=== PATIENT | female | born 1945 | race Caucasian/White ===

== ENCOUNTER 2018-06-08 17:43 | Emergency (ER) | payer MEDICARE, MEDICAID ==
--- NOTE | 2018-06-08 18:11 | ED Physician Chart ---
ED Chief Complaint/HPI - Patient Information Date Seen:: 06/08/18 Time Seen:: 18:05 Chief Complaint:: combative History of Present Illness:: THIS IS A 73 YO FEMALE WAS SENT FROM THE SNF FOR AN EVALUATION AND TREATMENT FOR HOSTILE BEHAVIOR WITH THE STAFF AND OTHER PATIENTS. Allergies:: Allergies Allergy/AdvReac Type Severity Reaction Status Date / Time levofloxacin [From Levaquin] Allergy Verified 06/08/18 17:51 Penicillins [PCN] Allergy Verified 06/08/18 17:51 Vitals:: Vital Signs - 8 hr 06/08/18 17:51 Temp 97.1 F HR 85 RR 18 BP 125/53 O2 Sat % 97 Historian:: Patient, EMS, Medical Records Review:: Nurse's Note Reviewed, Old Chart Reviewed, Transfer documents Reviewed ED Review of Systems - Review of Systems General/Constitutional: No fever, No chills, No weight loss, No weakness, No diaphoresis, No edema, No loss of appetite Skin: No skin lesions, Rash, No bruising Head: No headache, No light-headedness Eyes: No loss of vision, No pain, No diplopia ENT: No earache, No nasal drainage, No sore throat, No tinnitus Neck: No neck pain, No swelling, No thyromegaly, No stiffness, No mass noted Cardio Vascular: No chest pain, No palpitations, No PND, No orthopnea, No edema Pulmonary: No SOB, No cough, No sputum, No wheezing GI: No nausea, No vomiting, No diarrhea, No pain, No melena, No hematochezia, No constipation, No hematemesis G/U: No dysuria, No frequency, No hematuria Musculoskeletal: No bone or joint pain, No back pain, No muscle pain Endocrine: No polyuria, No polydipsia Psychiatric: Prior psych history, No depression, Anxiety, No suicidal ideation, Other (COMBATIVE AND HOSTILE BEHAVIOR) Hematopoietic: No bruising, No lymphadenopathy Allergic/Immuno: No urticaria, No angioedema Neurological: No syncope, No focal symptoms, No weakness, No paresthesia, No headache, No seizure, No dizziness, No confusion, No vertigo ED Past Medical History - Past Medical History Obtainable: Yes Past Medical History: HTN, CAD, Thyroid disorder, Arthritis, Dementia Family History: None Social History: Non Smoker, No Alcohol, No Drug Use, Care Facility Surgical History: PEG/GTube Psychiatricy History: Depression, Schizophrenia, Dementia Medication: Reviewed Family Medical History - Family Member Mother History Unknown: Yes Ethnicity: Unknown ED Physical Exam - Physical Examination General/Constitutional: Awake, Well-developed, well-nourished, Alert, No distress, GCS 15, Non-toxic appearing, Ambulatory Head: Atraumatic Eyes: Lids, conjuctiva normal, PERRL, EOMI Skin: Nl inspection, No rash (THIS PATIENT HAS UTICARIA OVER HER ENTIRE TRUNK ) , No skin lesions, No ecchymosis, Well hydrated, No lymphadenopathy ENMT: External ears, nose nl, Nasal exam nl, Lips, teeth, gums nl Neck: Nontender, Full ROM w/o pain, No JVD, No nuchal rigidity, No bruit, No mass, No stridor Respiratory: Nl effort/Exclusion, Clear to Auscultation, No Wheeze/Rhonchi/Rales Cardio Vascular: RRR, No murmur, gallop, rubs, NL S1 S2 GI: No tenderness/rebounding/guarding, No organomegaly, No hernia, Normal BS's, Nondistended, No mass/bruits, No McBurney tenderness : No CVA tenderness Extremities: No tenderness or effusion, Full ROM, normal strength in all extremities, No edema, Normal digits & nails Neuro/Psych: Alert/oriented, DTR's symmetric, Normal sensory exam, Normal motor strength, Judgement/insight normal (SHE HAS POOR INSIGHT AND HER MOOD IS ABNORMAL), Mood normal, Normal gait, No focal deficits Misc: Normal back, No paraspinal tenderness ED Labs/Radiology/EKG Results - Radiology Results Results: CHEST X-RAY = NAD - EKG Interpretations EKG Time:: 18:26 Rate & Rhythm: RATE = 86 SINUS [place]: LEFT AXIS Intervals: NO ECTOPY SEEN. ED Assessment - Assessment General Assessment: PSYCHOSIS ALLERGIC RASH ED Septic Shock - . Is Septic Shock (SBP<90, OR Lactate>4 mmol\L) present?: No - <6hrs of presentation: Vital Signs: Vital Signs - 8 hr 06/08/18 17:51 Temp 97.1 F HR 85 RR 18 BP 125/53 O2 Sat % 97 ED Reassessment (Disposition) - Reassessment Reassessment Condition:: Unchanged - Diagnosis Diagnosis:: PSYCHOSIS ALLERGIC RASH URINARY TRACT INFECTION - Patient Disposition Discharge/Transfer:: Acute Care w/in this hosp Admitting Medical Physician:: Phong Dickinson Admitting Psych Physician:: Debbi Rod Condition at Disposition:: Unchanged
[2018-06-08 18:28] LABS: % BASOPHILS 0.9 % (0.0-2.0); % EOSINOPHILS 20.2 % (0.0-5.0); % LYMPHOCYTES 17.5 % (20.0-50.0); % MONOCYTES 8.8 % (2.0-10.0); % NEUTROPHILS 52.6 % (40.0-80.0); BASOPHILE ABSOLUTE 0.1 Th/cumm (0-0.2); EOSINOPHILE ABSOLUTE 2.2 Th/cmm (0.1-0.4); HEMATOCRIT 37.4 % (41.0-60); HEMOGLOBIN 12.6 gm/dL (12-16); LYMPHOCYTE ABSOLUTE 1.9 Th/cmm (1.5-3.0); MEAN CORPUSCULAR HGB CONC 33.7 pg (28.0-36.0); MEAN PLATELET VOLUME 7.6 fl; NEUTROPHILE ABSOLUTE 5.9 Th/cmm (1.8-8.0); PLATELET COUNT 277 Th/cmm (150-400); RED CELL DISTRIBUTION WIDTH 13.9 % (11.5-20.0); WHITE BLOOD COUNT 11.1 Th/cmm (4.8-10.8)
[2018-06-08 18:44] LABS: INR 1.04 (0.5-1.4); PROTHROMBIN TIME (TEST) 10.8 SECONDS (9.5-11.5)
[2018-06-08 18:49] LABS: ALB/GLOB RATIO 1.2 (1.0-1.8); ALBUMIN 3.7 gm/dL (3.7-5.3); ALKALINE PHOSPHATASE 126 U/L (34-104); ANION GAP 12.9 (7.0-16.0); BILIRUBIN,TOTAL 0.3 mg/dL (0.3-1.0); BUN - UREA NITROGEN 26 mg/dL (7-25); CALCIUM SERUM 8.9 mg/dL (8.6-10.3); CARBON DIOXIDE 25.5 mEq/L (21.0-31.0); CHLORIDE 103 mEq/L (98-107); CREATININE - SERUM 0.7 mg/dL (0.6-1.2); GLUCOSE 121 mg/dL (70-105); POTASSIUM SERUM 3.4 mEq/L (3.5-5.1); SGOT 12 U/L (13-39); SGPT/ALT 9 U/L (7-52); SODIUM SERUM 138 mEq/L (136-145); TOTAL PROTEIN,SERUM 6.9 gm/dL (6.0-8.3)
[2018-06-08] MEDS ORDERED: Potassium Chloride Elixir 20 mEq /15 mL UDC PO ONE (19:00)
[2018-06-08] MEDS ORDERED: Potassium Chloride Elixir 20 mEq /15 mL UDC ONE (19:25)
[2018-06-08 19:28] LABS: URINE SOURCE CLEAN C
[2018-06-08 19:32] LABS: URINE BILIRUBIN NEGATIVE (NEGATIVE); URINE BLOOD TRACE (NEGATIVE); URINE GLUCOSE (UA) NEGATIVE (NEGATIVE); URINE KETONE NEGATIVE (NEGATIVE); URINE LEUKOCYTE ESTERASE MODERATE (NEGATIVE); URINE MICROSCOPIC INDICATED? YES; URINE NITRATE NEGATIVE (NEGATIVE); URINE PROTEIN NEGATIVE (NEGATIVE); URINE UROBILINOGEN 0.2 E.U./dL (0.2 - 1.0)
[2018-06-08 19:33] LABS: URINE COLOR YELLOW
[2018-06-08 19:34] LABS: URINE CLARITY HAZY (CLEAR)
[2018-06-08 19:35] LABS: URINE BACTERIA 1+ /hpf (NONE SEEN); URINE EPITHELIAL CELLS FEW /lpf (FEW)
--- NOTE | 2018-06-09 09:32 | Diagnostic Imaging Report ---
Portable chest x-ray Time: 1902 History: Chest pain Allowing for portable technique the heart size is normal. No focal pulmonary parenchymal processes. No hilar or mediastinal abnormalities. Impression: No acute abnormalities.
== END 2018-06-08 22:00 ==
LOC: ER 17:43
DX: F29 Unspecified psychosis not due to a substance or known physiological condition (principal); N39.0 Urinary tract infection, site not specified; L23.9 Allergic contact dermatitis, unspecified cause; I10 Essential (primary) hypertension; I25.10 Atherosclerotic heart disease of native coronary artery without angina pectoris; M19.90 Unspecified osteoarthritis, unspecified site; E07.9 Disorder of thyroid, unspecified; F32.9 Major depressive disorder, single episode, unspecified; F20.9 Schizophrenia, unspecified; Z93.1 Gastrostomy status; Z88.0 Allergy status to penicillin; Z88.1 Allergy status to other antibiotic agents
CPT/HCPCS: 99285; 96372; 93005; 71045; 84484; 36415; 84443; 85007; 85025; 85610; 85730; 81001; 80053; 87040 ×2; J0696

== ENCOUNTER 2018-06-13 21:13 | Inpatient (IN) | payer MEDICARE, MEDICAID ==
--- NOTE | 2018-06-13 21:26 | ED Physician Chart ---
ED Chief Complaint/HPI - Patient Information Date Seen:: 06/13/18 Time Seen:: 21:15 Chief Complaint:: aggressive behavior History of Present Illness:: Patient has reportedly been striking staff and other residents at her intermediate facility. Allergies:: Allergies Allergy/AdvReac Type Severity Reaction Status Date / Time levofloxacin [From Levaquin] Allergy Verified 06/08/18 17:51 Penicillins [PCN] Allergy Verified 06/08/18 17:51 Historian:: EMS Review:: Transfer documents Reviewed ED Review of Systems - Review of Systems General/Constitutional: No fever, No chills Skin: Skin lesions Head: No headache Eyes: No loss of vision ENT: No earache Neck: No neck pain Cardio Vascular: No chest pain, No palpitations Pulmonary: No SOB GI: No nausea, No vomiting, No diarrhea G/U: No dysuria Musculoskeletal: No bone or joint pain Endocrine: No polyuria, No polydipsia Psychiatric: Prior psych history Hematopoietic: No bruising, No lymphadenopathy Allergic/Immuno: No urticaria, No angioedema Neurological: No syncope ED Past Medical History - Past Medical History Past Medical History: HTN, CHF, Thyroid disorder (status post urinary tract infection; adipose sepsis; dysphagia; hypothyroid; ptosis; right hip decubitus) , Other (status post urinary tract infection; status post sepsis; dysphagia; hypothyroidism) Family History: Other (not available) Social History: Care Facility Surgical History: other (I available) Medication: Reviewed Family Medical History - Family Member Mother History Unknown: Yes Ethnicity: Unknown ED Physical Exam - Physical Examination General/Constitutional: Well-developed, well-nourished Other Gen/Cons comments:: Patient is somnolent and barely verbal Head: Atraumatic Eyes: Lids, conjuctiva normal, PERRL Other Skin comments:: Diffuse maculopapular rash which is noted to be on the left side of the neck and slightly over the mandible ENMT: External ears, nose nl Neck: No nuchal rigidity Respiratory: Nl effort/Exclusion, Clear to Auscultation Cardio Vascular: RRR, No murmur, gallop, rubs GI: No tenderness/rebounding/guarding, No organomegaly, No hernia, Normal BS's, Nondistended, No mass/bruits : No CVA tenderness Extremities: Normal digits & nails Neuro/Psych: No focal deficits Misc: No paraspinal tenderness ED Labs/Radiology/EKG Results - Lab Results Results: Abnormal Lab Results 06/13/18 06/13/18 21:45 21:45 WBC 8.7 RBC 4.03 Hgb 11.9 L Hct 35.5 L MCV 88.2 MCH 29.6 MCHC Differential 33.6 RDW 13.7 Plt Count 296 MPV 7.4 Add Manual Diff YES Neutrophils % [employer] Band Neutrophils % 1 Lymphocytes % [employer] Monocytes % [employer]EL Eosinophils % [employer] Basophils % [employer] WHEEL Neutrophils (Manual) 52 Lymphocytes 26 Monocytes 1 L Eosinophils 20 H Platelet Estimate ADEQUATE Sodium 142 Potassium 3.5 Chloride 105 Carbon Dioxide 27.2 Anion Gap 13.3 BUN 33 H Creatinine 0.6 Est GFR ( Amer) TNP Est GFR (Non-Af Amer) TNP BUN/Creatinine Ratio 55.0 Glucose 129 H Calcium 8.7 Total Bilirubin 0.2 L AST 11 L ALT 8 Alkaline Phosphatase 94 Total Protein 6.3 Albumin 3.4 L Globulin 2.9 Albumin/Globulin Ratio 1.2 Triglycerides 125 Cholesterol 112 LDL Cholesterol Direct 67 L HDL Cholesterol 30 - EKG Interpretations Rate & Rhythm: normal sinus rhythm with a rate in 92 [place]: normal ED Reassessment (Disposition) - Reassessment Reassessment Condition:: Unchanged - Diagnosis Diagnosis:: Agitation - Patient Disposition Discharge/Transfer:: Acute Care (other hosp) Condition at Disposition:: Stable, Unchanged
[2018-06-13 21:53] LABS: HEMATOCRIT 35.5 % (41.0-60); HEMOGLOBIN 11.9 gm/dL (12-16); MEAN CELL VOLUME 88.2 fl (81-100); MEAN CORPUSCULAR HEMOGLOBIN 29.6 pg (27.0-31.0); MEAN CORPUSCULAR HGB CONC 33.6 pg (28.0-36.0); MEAN PLATELET VOLUME 7.4 fl; PLATELET COUNT 296 Th/cmm (150-400); RED BLOOD COUNT 4.03 Mil/cmm (3.80-5.20); RED CELL DISTRIBUTION WIDTH 13.7 % (11.5-20.0); WHITE BLOOD COUNT 8.7 Th/cmm (4.8-10.8)
[2018-06-13 22:08] LABS: ALB/GLOB RATIO 1.2 (1.0-1.8); ALBUMIN 3.4 gm/dL (3.7-5.3); ALKALINE PHOSPHATASE 94 U/L (34-104); ANION GAP 13.3 (7.0-16.0); BILIRUBIN,TOTAL 0.2 mg/dL (0.3-1.0); BUN - UREA NITROGEN 33 mg/dL (7-25); CALCIUM SERUM 8.7 mg/dL (8.6-10.3); CARBON DIOXIDE 27.2 mEq/L (21.0-31.0); CHLORIDE 105 mEq/L (98-107); CHOLESTEROL 112 mg/dL (<200); CREATININE - SERUM 0.6 mg/dL (0.6-1.2); GLUCOSE 129 mg/dL (70-105); HDL -HIGH DENSITY LIPOPROTEIN 30 mg/dL (23-92); POTASSIUM SERUM 3.5 mEq/L (3.5-5.1); SGOT 11 U/L (13-39); SGPT/ALT 8 U/L (7-52); SODIUM SERUM 142 mEq/L (136-145); TOTAL PROTEIN,SERUM 6.3 gm/dL (6.0-8.3); TRIGLYCERIDES 125 mg/dL (<150)
[2018-06-13 22:33] LABS: BAND NEUTROPHILE 1 % (0-10); EOSINOPHIL 20 % (0-5); LYMPHOCYTE 26 % (20-50); MONOCYTE 1 % (2-10); NEUTROPHILS 52 % (40-80); PLATELET ESTIMATE ADEQUATE (NORMAL)
[2018-06-14 08:30] LABS: URINE SOURCE CLEAN C
[2018-06-14 08:33] LABS: URINE BILIRUBIN NEGATIVE (NEGATIVE); URINE BLOOD NEGATIVE (NEGATIVE); URINE GLUCOSE (UA) NEGATIVE (NEGATIVE); URINE KETONE NEGATIVE (NEGATIVE); URINE LEUKOCYTE ESTERASE TRACE (NEGATIVE); URINE MICROSCOPIC INDICATED? YES; URINE NITRATE NEGATIVE (NEGATIVE); URINE PROTEIN NEGATIVE (NEGATIVE); URINE UROBILINOGEN 0.2 E.U./dL (0.2 - 1.0)
[2018-06-14 08:46] LABS: URINE CLARITY CLEAR (CLEAR); URINE COLOR YELLOW
[2018-06-14 08:47] LABS: URINE BACTERIA MODERATE /hpf (NONE SEEN); URINE EPITHELIAL CELLS FEW /lpf (FEW); URINE RBC NONE SEEN /hpf (0-5)
[2018-06-14 09:29] LABS: AMPHETAMINE URINE NEGATIVE (NEGATIVE); BARBITURATES URINE NEGATIVE (NEGATIVE); COCAINE METABOLITE QUAL URINE NEGATIVE (NEGATIVE); METHAMPHETAMINES QUAL URINE NEGATIVE (NEGATIVE); PHENCYCLIDINE (PCP) URINE NEGATIVE (NEGATIVE); TRICYCLICS (TCA) QUAL. URINE POSITIVE (NEGATIVE)
[2018-06-14 09:30] LABS: BENZODIAZEPINES QUAL URINE NEGATIVE (NEGATIVE); CANNABINOID THC NEGATIVE (NEGATIVE); METHADONE URINE NEGATIVE (NEGATIVE); OPIATES (MORPHINE) QUAL. URINE NEGATIVE (NEGATIVE)
[2018-06-14 11:47] VITALS: BP 120/80
[2018-06-14] MEDS ORDERED: Magnesium Hydroxide (MOM) 30 mL UDC PO PRN ×2 (12:36→12:43)
[2018-06-14] MEDS ORDERED: Maalox 30 mL Cup PO PRN (12:36)
[2018-06-14] MEDS ORDERED: Hydrocodone/APAP 5mg/325mg Tab PO PRN (12:43)
[2018-06-14] MEDS ORDERED: Haloperidol Lactate 5 mg/mL 1mL Vial IM ONE (14:55)
[2018-06-14] MEDS ORDERED: Haloperidol Lactate 5 mg/mL 1mL Vial ONE (15:03)
[2018-06-14 21:12] LABS: CHOLESTEROL 133 mg/dL (<200); HDL -HIGH DENSITY LIPOPROTEIN 34 mg/dL (23-92); TRIGLYCERIDES 181 mg/dL (<150)
[2018-06-15] MEDS: Levothyroxine 0.075 Mg Tab PO SCH (06:38)
--- NOTE | 2018-06-15 07:39 | Psychiatric Evaluation ---
DATE OF SERVICE: 06/14/2018 JUSTIFICATION FOR HOSPITALIZATION: Striking staff, hitting staff, delusional. CHIEF COMPLAINT: "I am trying to be nice to people." HISTORY OF PRESENT ILLNESS: A 73-year-old female, delusional, believes [facility], ro[facility] things, robbing other people. Therefore, she has been hitting them, striking them, kicking them, trying to slap others. The patient guarded, minimizing her symptoms, generally disoriented to the year and month. The patient currently comfortable, eating without any events or agitation right now. PAST PSYCHIATRIC HISTORY: There seems to be some cognitive decline, also with dementia. It is unclear if she has a diagnosis of schizophrenia, poor historian. MEDICATIONS: Noted. SOCIAL HISTORY: Coming from [facility]. It is unclear if she is . Unclear if she has kids, but per public health social worker, she does have 2 children. MENTAL STATUS EXAMINATION: Stated age, unkempt, fair eye contact. Mood "okay." Affect flat. Thought processes were disoriented. No SI, no HI. The patient with concerns regarding delusions. Insight and judgment diminished. PROVISIONAL DIAGNOSES: Psychosis, unspecified, rule out delusional disorder, concerns for dementia, dementia with behaviors. Under medical please see full H and P. ESTIMATED LENGTH OF STAY: 7-8 days. FUNCTIONAL IMPAIRMENTS: The patient in a wheelchair. ASSESSMENT: The patient delusional, striking out at staff, very aggressive. PLAN: Initiate low dose Seroquel to target delusions, psychosis. TREATMENT PLAN: Includes group as well as milieu therapy. CONDITIONS FOR DISCHARGE: Improved mood, improved affect, better control of her agitation. [facility]# [id number]
[2018-06-15] MEDS ORDERED: Multivitamin Tab PO SCH (09:00)
[2018-06-15] MEDS: Multivitamin w/ Minerals Tab PO SCH (09:41)
[2018-06-15] MEDS: Potassium Chloride 20 mEq ER Tab PO SCH (09:41)
[2018-06-15] MEDS ORDERED: Haloperidol Lactate 5 mg/mL 1mL Vial IM ONE (10:08)
[2018-06-15] MEDS ORDERED: Haloperidol Lactate 5 mg/mL 1mL Vial ONE (10:10)
--- NOTE | 2018-06-15 10:29 | Psychiatric Evaluation ---
DATE OF SERVICE: 06/14/2018 SEX: Female. PHYSICIAN: Dr. Bello. CHIEF COMPLAINT: Severe agitation and aggressive behavior. HISTORY OF PRESENT ILLNESS: The patient is a 73-year-old female who was transferred from [facility] on a [address]. The patient has been extremely irritable and extremely agitated with episodes of yelling and screaming constantly and also with difficulty following any of staff directions. She also has been paranoid and has been extremely agitated. The patient also has been angry for no apparent reason. Staff tried to calm her down. She was not able to do so. PAST PSYCHIATRIC HISTORY: The patient has history of what seems to be bipolar disorder and has been in irritable and angry mood. PAST MEDICAL HISTORY: The patient has history of hypothyroidism as well as hypertension and congestive heart failure. The patient also has right hip decubitus. SOCIAL HISTORY: The patient is . She has 1 son and 1 daughter. The patient denies alcohol or drug use. ALLERGIES: No known allergies. MENTAL STATUS EXAMINATION: The patient appears her stated age. Irritable mood. Anxious. Disheveled. Thought processes are mainly goal directed. The patient denies any hallucinations, but seems to be paranoid and seems to be responding to stimuli. The patient denied any thoughts of suicide or homicide. The patient is alert and oriented to situation, but not to place or person and when I asked her about where she lives, she pointed out to her room in the hospital and she could not tell me where she actually live or where she came from. Impaired immediate and recent memory at this time, but that might be because of her confusion and paranoia, but intact remote memory and she knew her age and her date. Poor insight. Poor judgment. ASSESSMENT: PRIMARY DIAGNOSIS: Unspecified psychosis. Rule out bipolar disorder, severe, manic episode, with psychotic features, rule out dementia with psychosis and behavioral disturbances. TREATMENT PLAN: Monitor the patient's behavior and condition closely. Also, we will decrease Seroquel to 100 mg in the morning and 50 mg at bedtime and also will add Klonopin in a dose of 0.5 mg twice a day and will adjust the dose. ESTIMATED LENGTH OF STAY: 5-7 days. THE PATIENT'S STRENGTHS AND WEAKNESSES: The patient's strength is not clear at this time. Weaknesse is ineffective coping. AFTER DISCHARGE PLAN: The patient will return to [facility] and will follow up her condition as an outpatient. CRITERIA FOR DISCHARGE: The patient will be calmer and will stabilize psychotropic medications and establish outpatient treatment plans. [facility]# [id number]
--- NOTE | 2018-06-15 20:56 | Progress Notes ---
DATE: 06/15/2018 SUBJECTIVE: The patient is currently in the hospital today, 06/15/2018, seen, remains very confused, disoriented, has no idea where she is or what is going on, believing it is July or August. She knows it is 2017. The patient required emergency Haldol the past 24 hours acting up behaviors, aggressive behaviors, very poorly oriented, forgetful even aware of her poor memory, refusing care at times. The patient is currently in the hospital, she was very aggressive, trying to hit staff, trying to elope from the facility now. ASSESSMENT: The patient aggressive, angry, still requiring emergency orders of Haldol, still trying to hit staff. Currently on the Seroquel. We will continue to monitor. The patient is not currently safe for a lower level of care. JOB# [id number]
[2018-06-16] MEDS: Levothyroxine 0.075 Mg Tab PO SCH (06:46)
[2018-06-16] MEDS: Multivitamin w/ Minerals Tab PO SCH (09:52)
[2018-06-16] MEDS: Potassium Chloride 20 mEq ER Tab PO SCH (09:52)
--- NOTE | 2018-06-16 20:06 | Progress Notes ---
DATE: 06/16/2018 SUBJECTIVE: The patient is currently in the hospital, very aggressive, agitated, was hitting staff, kicking staff, slapping staff at the correction. The patient required emergency medications in the hospital a few days prior, confused, forgetful, irritable, labile and intrusive, easily agitated, threatening others. The patient has absolutely no recollection of why she is in the hospital, has no recollections of her hitting episodes. The patient required Haldol cocktail yesterday. She tried to elope from the unit, became verbally and physically aggressive with staff. ASSESSMENT: The patient remains symptomatic, not safe for a lower level of care. PLAN: We will continue Seroquel dosing and initiated Depakote as well. JOB# [id number]
--- NOTE | 2018-06-17 01:24 | Progress Notes ---
DATE: 06/15/2018 SUBJECTIVE: Chart reviewed and the patient interviewed. Also discussed the patient's condition with the staff and reviewed records and labs. The patient still wanders around the unit and entering into other patient's rooms in a confused state. She is still demanding and she is still confused. The patient also is still forgetful and she is still easily agitated and irritable with episodes of yelling and screaming. The patient also still has difficulty following directions. Otherwise, the patient is compliant with taking her medications with no side effect. ASSESSMENT: The patient is still confused and is still irritable and angry mood. TREATMENT PLAN: We will add Haldol Decanoate injection today for better compliance with medications and will continue to follow up closely. JOB# [id number]
--- NOTE | 2018-06-17 05:03 | Progress Notes ---
DATE: 06/16/2018 SUBJECTIVE: Chart reviewed and the patient interviewed. Also discussed the patient's condition with the staff and reviewed records and labs. The patient is still confused and forgetful. The patient also is still wandering into other patients rooms. Yesterday during the day, the patient was extremely agitated and irritable and the patient was given emergency injection of Haldol and Ativan to calm her down. Today, the patient seems to be slightly calmer than yesterday. The patient seems to be less agitated and less irritable, but still needs redirections and still wandering into other patients rooms. ASSESSMENT: The patient is still agitated and delusional. TREATMENT PLAN: Continue monitoring her behavior and her condition and continue to work on behavioral modification and adjusting psychotropic medications. JOB# [id number]
[2018-06-17] MEDS: Levothyroxine 0.075 Mg Tab PO SCH (06:48)
--- NOTE | 2018-06-17 08:44 | History and Physical ---
History of Present Illness - HPI Chief Complaint: Aggressive behavior HPI: Patient was send to ER from SNF for evaluation due to aggressive behavior Vital Signs: Last Vital Signs Temp 97 F 06/16/18 20:00 Pulse 94 06/16/18 20:00 Resp 20 06/16/18 20:00 BP 123/74 06/16/18 20:00 Pulse Ox 96 06/16/18 20:00 Past Medical History Cardiovascular: Report: CAD, CHF, HTN Pulmonary: Report: No Pertinent Hx [employer]: Report: Dementia GI: Report: No Pertinent Hx Psych: Report: Schizophrenia Musculoskeletal: Report: Weakness Rheumatologic: Report: No pertinent Hx Infectious Disease: Report: Other (Frequent UTI) Renal/: Report: No Pertinent Hx Endocrine: Report: Hypothyroidism Dermatology: Report: Eczema, Other (Dry rash for all body) - Past Surgical History Past Surgical History: No pertinent Hx Family Medical History - Family Member Mother History Unknown: Yes Ethnicity: Unknown Living Status: Unknown Hx Family Cancer: (unknown) Hx Family Coronary Artery Disease: (unknown) Hx Family Congestive Heart Failure: (unknown) Hx Family Hypertension: (unknown) Hx Family Stroke: (unknown) Hx Family Diabetes: (unknown) Hx Family Seizures: (unknown) Hx Family Dementia: (unknown) Hx Family AIDS: (unknown) Hx Family COPD: (unknown) Hx Family Hepatitis: (unknown) Hx Family Psychiatric Problems: (unknown) Hx Family Tuberculosis: (unknown) Social History Smoke: No Alcohol: None Drugs: None Lives: Long-Term Domestic Violence: Negative - Medications Home Medications: Home Medication Medication Instructions Recorded Type Acetaminophen [Tylenol] 650 mg PO Q6HR PRN 06/13/18 History Amlodipine Besylate 5 mg PO DAILY 06/13/18 History Hydrocodone/Acetaminophen [[place] 1 tab PO Q6H PRN 06/13/18 History 325 mg-5 mg*] Ivermectin [Stromectol] 48 mg PO QSUN 06/13/18 History Levothyroxine [Synthroid] 0.075 mg PO QDAC 06/13/18 History Magnesium Hydroxide [Milk of 30 ml PO HS PRN 06/13/18 History Magnesia] Multivitamin w/ Minerals 1 tab PO DAILY 06/13/18 History [Theragran M] Potassium Chloride ER [Klor-Con] 40 meq PO DAILY 06/13/18 History QUEtiapine Fumarate [SEROquel] 100 mg PO DAILY 06/13/18 History Sennosides A and B [Senna] 8.6 mg PO HS 06/13/18 History - Allergies Allergies/Adverse Reactions: Allergies Allergy/AdvReac Type Severity Reaction Status Date / Time levofloxacin [From Levaquin] Allergy Verified 06/08/18 17:51 Penicillins [PCN] Allergy Verified 06/08/18 17:51 Review of Systems - Review of Systems Constitutional: Report: Weakness Eyes: Report: No Significant ENT: Report: No Significant Respiratory: Report: No Significant Cardiovascular: Report: No Significant Gastrointestinal: Report: No Significant Genitourinary: Report: No Significant Musculoskeletal: Report: No Significant Skin: Report: Rash Neurological: Report: Weakness Physical Exam - Physical Exam HEENT: Report: Ears Nose Throat within normal limits Neck: Report: Within normal limits Cardiovascular Systems: Report: Regular, Rate and Rhythm Respiratory: Report: Breath Sounds are within normal limits Abdomen: Report: Non-tender to palpation, Other (Ventral Abdominal hernia) Back: Report: Inspection of back is within normal limits. Extremities: Report: Non-tender to palpation., Other (Pitting edema 1+ of both legs.) Skin: Report: Dry, Skin Rash noted Neuro/Psych: Report: Disoriented to name time or place - Lab Results All Lab Results last 24 hours: Microbiology 06/13/18 21:26 - Final Nares Staph Aureus-Mrsa Isolated - Assessment Assessment: Current Active Problems Problem Status Onset Agitation Acute Patient is awake, alert, calm, in no acute distress. Dx; Increased in agitation , Psychosis, Dermatophytosis Rash, HTN, CHF, Hypothyroidism - Plan Plan: patient is follow by Psychiatry, continue with SNF meds. Will continue to monitor.
[2018-06-17] MEDS: Multivitamin w/ Minerals Tab PO SCH (09:38)
[2018-06-17] MEDS: Potassium Chloride 20 mEq ER Tab PO SCH (09:38)
[2018-06-17] MEDS: Sulfamethoxazole/TMP 800/160mg Tab PO SCH ×2 (16:57→16:58)
[2018-06-18] MEDS: Levothyroxine 0.075 Mg Tab PO SCH (07:05)
[2018-06-18] MEDS: Multivitamin w/ Minerals Tab PO SCH (08:48)
[2018-06-18] MEDS: Potassium Chloride 20 mEq ER Tab PO SCH (08:48)
[2018-06-18] MEDS: Sulfamethoxazole/TMP 800/160mg Tab PO SCH ×2 (08:49→17:58)
--- NOTE | 2018-06-18 08:51 | General Progress Note ---
Subjective - Review of Systems Service Date: 06/18/18 Subjective: Patient is confused Objective - Results Result Diagrams: 06/13/18 21:45 06/13/18 21:45 Recent Labs: Laboratory Last Values WBC 8.7 Th/cmm (4.8-10.8) 06/13/18 21:45 RBC 4.03 Mil/cmm (3.80-5.20) 06/13/18 21:45 Hgb 11.9 gm/dL (12-16) L 06/13/18 21:45 Hct 35.5 % (41.0-60) L 06/13/18 21:45 MCV 88.2 fl (81-100) 06/13/18 21:45 MCH 29.6 pg (27.0-31.0) 06/13/18 21:45 MCHC Differential 33.6 pg (28.0-36.0) 06/13/18 21:45 RDW 13.7 % (11.5-20.0) 06/13/18 21:45 Plt Count 296 Th/cmm (150-400) 06/13/18 21:45 MPV 7.4 fl 06/13/18 21:45 Add Manual Diff YES 06/13/18 21:45 Neutrophils % INDUSTRIAL STAFF NURSE 06/13/18 21:45 Band Neutrophils % 1 % (0-10) 06/13/18 21:45 Lymphocytes % INDUSTRIAL STAFF NURSE 06/13/18 21:45 Monocytes % INDUSTRIAL STAFF NURSE 06/13/18 21:45 Eosinophils % INDUSTRIAL STAFF NURSE 06/13/18 21:45 Basophils % INDUSTRIAL STAFF NURSE 06/13/18 21:45 Neutrophils (Manual) 52 % (40-80) 06/13/18 21:45 Lymphocytes 26 % (20-50) 06/13/18 21:45 Monocytes 1 % (2-10) L 06/13/18 21:45 Eosinophils 20 % (0-5) H 06/13/18 21:45 Platelet Estimate ADEQUATE (NORMAL) 06/13/18 21:45 Sodium 142 mEq/L (136-145) 06/13/18 21:45 Potassium 3.5 mEq/L (3.5-5.1) 06/13/18 21:45 Chloride 105 mEq/L (98-107) 06/13/18 21:45 Carbon Dioxide 27.2 mEq/L (21.0-31.0) 06/13/18 21:45 Anion Gap 13.3 (7.0-16.0) 06/13/18 21:45 BUN 33 mg/dL (7-25) H 06/13/18 21:45 Creatinine 0.6 mg/dL (0.6-1.2) 06/13/18 21:45 Est GFR ( Amer) TNP 06/13/18 21:45 Est GFR (Non-Af Amer) TNP 06/13/18 21:45 BUN/Creatinine Ratio 55.0 06/13/18 21:45 Glucose 129 mg/dL (70-105) H 06/13/18 21:45 Calcium 8.7 mg/dL (8.6-10.3) 06/13/18 21:45 Total Bilirubin 0.2 mg/dL (0.3-1.0) L 06/13/18 21:45 AST 11 U/L (13-39) L 06/13/18 21:45 ALT 8 U/L (7-52) 06/13/18 21:45 Alkaline Phosphatase 94 U/L (34-104) 06/13/18 21:45 Total Protein 6.3 gm/dL (6.0-8.3) 06/13/18 21:45 Albumin 3.4 gm/dL (3.7-5.3) L 06/13/18 21:45 Globulin 2.9 gm/dL 06/13/18 21:45 Albumin/Globulin Ratio 1.2 (1.0-1.8) 06/13/18 21:45 Triglycerides 181 mg/dL (<150) H 06/14/18 20:50 Cholesterol 133 mg/dL (<200) 06/14/18 20:50 LDL Cholesterol Direct 82 mg/dL (75-193) 06/14/18 20:50 HDL Cholesterol 34 mg/dL (23-92) 06/14/18 20:50 TSH 4.03 uIU/ml (0.34-5.60) 06/13/18 21:45 Urine Source CLEAN C 06/14/18 07:20 Urine Color YELLOW 06/14/18 07:20 Urine Clarity CLEAR (CLEAR) 06/14/18 07:20 Urine pH 6.0 (4.6 - 8.0) 06/14/18 07:20 Ur Specific [place] 1.020 (1.005-1.030) 06/14/18 07:20 Urine Protein NEGATIVE mg/dL (NEGATIVE) 06/14/18 07:20 Urine Glucose (UA) NEGATIVE mg/dL (NEGATIVE) 06/14/18 07:20 Urine Ketones NEGATIVE mg/dL (NEGATIVE) 06/14/18 07:20 Urine Blood NEGATIVE (NEGATIVE) 06/14/18 07:20 Urine Nitrate NEGATIVE (NEGATIVE) 06/14/18 07:20 Urine Bilirubin NEGATIVE (NEGATIVE) 06/14/18 07:20 Urine Urobilinogen 0.2 E.U./dL (0.2 - 1.0) 06/14/18 07:20 Ur Leukocyte Esterase TRACE (NEGATIVE) H 06/14/18 07:20 Urine RBC NONE SEEN /hpf (0-5) 06/14/18 07:20 Urine WBC 2-5 /hpf (0-5) 06/14/18 07:20 Ur Epithelial Cells FEW /lpf (FEW) 06/14/18 07:20 Urine Bacteria MODERATE /hpf (NONE SEEN) H 06/14/18 07:20 Urine Opiates Screen NEGATIVE (NEGATIVE) 06/14/18 08:42 Urine Methadone Screen NEGATIVE (NEGATIVE) 06/14/18 08:42 Ur Barbiturates Screen NEGATIVE (NEGATIVE) 06/14/18 08:42 Ur Tricyclics Screen POSITIVE (NEGATIVE) H 06/14/18 08:42 Ur Phencyclidine Scrn NEGATIVE (NEGATIVE) 06/14/18 08:42 Amphetamines Screen NEGATIVE (NEGATIVE) 06/14/18 08:42 U Methamphetamines Scrn NEGATIVE (NEGATIVE) 06/14/18 08:42 U Benzodiazepines Scrn NEGATIVE (NEGATIVE) 06/14/18 08:42 U Cocaine Metab Screen NEGATIVE (NEGATIVE) 06/14/18 08:42 U Cannabinoids Screen NEGATIVE (NEGATIVE) 06/14/18 08:42 RPR NONREACTIVE (NONREACTIVE) 06/13/18 21:45 - Physical Exam Vitals and I&O: Vital Signs Temp 97.2 F 06/18/18 06:02 Pulse 98 06/18/18 06:02 Resp 20 06/18/18 06:02 BP 121/72 06/18/18 06:02 Pulse Ox 96 06/18/18 06:02 Intake & Output 06/17/18 06/18/1818 18:59 06:59 18:59 Intake Total 700 60 Balance 700 60 Intake: Oral 700 60 Other: # Voids 3 2 # Bowel Movements 1 0 Active Medications: Current Medications Acetaminophen (Tylenol) 650 mg PO Q6HR PRN PRN Reason: Pain or Fever >101 Stop: 08/13/18 12:42 Acetaminophen/Hydrocodone Bitart ([place] 5mg/325mg) 1 tab PO Q6H PRN PRN Reason: Pain (Moderate) Stop: 08/13/18 12:42 Al Hydrox/Mg Hydrox/Simethicone (Maalox) 30 ml PO Q4HR PRN PRN Reason: GI DISTRESS Stop: 08/13/18 12:35 Amlodipine Besylate (Norvasc) 5 mg PO DAILY [facility] Stop: 08/14/18 08:59 Last Admin: 06/17/18 09:38 Dose: Not Given Clonazepam (Klonopin) 0.5 mg PO BID [facility]; Protocol Stop: 08/14/18 08:59 Last Admin: 06/17/18 16:58 Dose: 0.5 mg Diphenhydramine HCl (Benadryl) 25 mg PO TID [facility] Stop: 08/17/18 08:59 Divalproex Sodium (Depakote Dr) 125 mg PO Q12HR [facility]; Protocol Stop: 08/14/18 08:59 Last Admin: 06/17/18 21:40 Dose: 125 mg Haloperidol Decanoate (Haldol Dec) 25 mg IM QMONTH [facility]; Protocol Stop: 08/14/18 04:44 Last Admin: 06/15/18 14:15 Dose: 25 mg Levothyroxine Sodium (Synthroid) 0.075 mg PO QDAC [facility] Stop: 08/14/18 07:29 Last Admin: 06/18/18 07:05 Dose: 0.075 mg Lorazepam (Ativan) 0.5 mg PO Q6HR PRN; Protocol PRN Reason: Agitation Stop: 08/13/18 14:26 Magnesium Hydroxide (Milk Of Magnesia) 30 ml PO HS PRN PRN Reason: Constipation Stop: 08/13/18 12:42 Memantine (Namenda) 5 mg PO DAILY [facility] Stop: 08/14/18 08:59 Last Admin: 06/17/18 09:38 Dose: 5 mg Mupirocin (Bactroban Oint) 1 appl NS BID [facility] Stop: 06/20/18 09:01 Last Admin: 06/17/18 16:58 Dose: 1 appl Potassium Chloride (Klor-Con) 40 meq PO DAILY [facility] Stop: 08/14/18 08:59 Last Admin: 06/17/18 09:38 Dose: 40 meq Quetiapine Fumarate (Seroquel) 50 mg PO HS [facility]; Protocol Stop: 08/13/18 20:59 Last Admin: 06/17/18 21:40 Dose: 50 mg Quetiapine Fumarate (Seroquel) 150 mg PO DAILY [facility]; Protocol Stop: 08/17/18 08:59 Senna (Senna) 8.6 mg PO HS [facility] Stop: 08/13/18 20:59 Last Admin: 06/17/18 21:40 Dose: 8.6 mg Terbinafine HCl (Lamisil) 250 mg PO DAILY [facility] Stop: 08/17/18 08:59 Trimethoprim/Sulfamethoxazole (Bactrim Ds) 1 tab PO BID [facility] Stop: 08/16/18 08:59 Last Admin: 06/17/18 16:58 Dose: 1 tab Zolpidem Tartrate (Ambien) 5 mg PO HS PRN PRN Reason: Insomnia Stop: 08/13/18 12:35 Last Admin: 06/17/18 21:39 Dose: 5 mg General: Alert, No acute distress HEENT: Atraumatic Neck: Supple Cardiovascular: Regular rate Lungs: Clear to auscultation Abdomen: Bowel sounds, Soft Extremities: Edema Neurological: Other (Unstable gait) Skin: Rash Psych/Mental Status: Other (Confused, not oriented.) Assessment/Plan - Problem List Patient Problems: All Active Problems Agitation (Acute) R45.1 - Assessment Assessment: Current Active Problems Problem Status Onset Agitation Acute Patient is awake, alert, calm, in no acute distress. Dx; Increased in agitation , Psychosis, Dermatophytosis Rash, HTN, CHF, Hypothyroidism - Plan Plan: patient is follow by Psychiatry, continue with SNF meds. Will continue to monitor.
[2018-06-18] MEDS ORDERED: Menthol/Zinc Oxide Oint 113gm Tube TP PRN (11:19)
[2018-06-18] MEDS ORDERED: Probiotic Screen MC PRN (12:51)
[2018-06-18] MEDS: Lactobacillus Rhamnosus GG 15 Billion CFU CAP.SPRINK PO SCH (14:46)
--- NOTE | 2018-06-19 06:21 | Progress Notes ---
DATE: 06/17/2018 SUBJECTIVE: The patient remains confused and disoriented. She is seemingly calmer. Staff noting she seems to be improving, calmer on exam, less agitation, likely approaching her baseline per staff. She remains forgetful, restless, preoccupied, does not know where she is or why she is here, very confused. ASSESSMENT: The patient seems to be calming down, more cooperative, somewhat withdrawn. No episodes of combative behaviors, no acting out behaviors. PLAN: We will continue to monitor recent dose increase of Seroquel. We will continue to monitor and titrate medications as needed. JOB# [id number]
--- NOTE | 2018-06-19 06:25 | Progress Notes ---
DATE: 06/18/2018 The patient is currently in the hospital, unkempt, poorly oriented, very confused, requiring a lot of prompting, redirection; however, she is seemingly calmer, no longer aggressive, no acting out behavior, tries to get of bed at times. ASSESSMENT: The patient is calm, more likely approaching her baseline. PLAN: We will continue to monitor, adjust and titrate medications. We will monitor her for over sedation. JOB# [id number]
[2018-06-19] MEDS: Levothyroxine 0.075 Mg Tab PO SCH (06:48)
[2018-06-19 08:29] LABS: HEMATOCRIT 38.5 % (41.0-60); MEAN CORPUSCULAR HGB CONC 33.4 pg (28.0-36.0)
[2018-06-19 08:45] LABS: HEMOGLOBIN 12.9 gm/dL (12-16); MEAN CELL VOLUME 88.7 fl (81-100); MEAN CORPUSCULAR HEMOGLOBIN 29.6 pg (27.0-31.0); MEAN PLATELET VOLUME 7.5 fl; PLATELET COUNT 363 Th/cmm (150-400); RED BLOOD COUNT 4.34 Mil/cmm (3.80-5.20); RED CELL DISTRIBUTION WIDTH 13.4 % (11.5-20.0); WHITE BLOOD COUNT 8.4 Th/cmm (4.8-10.8)
[2018-06-19 09:17] LABS: BAND NEUTROPHILE 0 % (0-10); EOSINOPHIL 26 % (0-5); LYMPHOCYTE 11 % (20-50); MONOCYTE 5 % (2-10); NEUTROPHILS 58 % (40-80)
[2018-06-19 09:18] LABS: PLATELET ESTIMATE ADEQUATE (NORMAL)
[2018-06-19] MEDS: Potassium Chloride 20 mEq ER Tab PO SCH (09:58)
[2018-06-19] MEDS: Lactobacillus Rhamnosus GG 15 Billion CFU CAP.SPRINK PO SCH (09:58)
[2018-06-19] MEDS: Multivitamin w/ Minerals Tab PO SCH (09:58)
[2018-06-19] MEDS: Sulfamethoxazole/TMP 800/160mg Tab PO SCH (10:00)
--- NOTE | 2018-06-19 10:01 | General Progress Note ---
Subjective - Review of Systems Service Date: 06/19/18 Subjective: Patient is confused. sleeping but arousable Objective - Results Result Diagrams: 06/19/18 08:15 06/13/18 21:45 Recent Labs: Laboratory Last Values WBC 8.4 Th/cmm (4.8-10.8) 06/19/18 08:15 RBC 4.34 Mil/cmm (3.80-5.20) 06/19/18 08:15 Hgb 12.9 gm/dL (12-16) 06/19/18 08:15 Hct 38.5 % (41.0-60) L 06/19/18 08:15 MCV 88.7 fl (81-100) 06/19/18 08:15 MCH 29.6 pg (27.0-31.0) 06/19/18 08:15 MCHC Differential 33.4 pg (28.0-36.0) 06/19/18 08:15 RDW 13.4 % (11.5-20.0) 06/19/18 08:15 Plt Count 363 Th/cmm (150-400) 06/19/18 08:15 MPV 7.5 fl 06/19/18 08:15 Add Manual Diff YES 06/19/18 08:15 Neutrophils % MITER OPERATOR 06/13/18 21:45 Band Neutrophils % 0 % (0-10) 06/19/18 08:15 Lymphocytes % MITER OPERATOR 06/13/18 21:45 Monocytes % MITER OPERATOR 06/13/18 21:45 Eosinophils % MITER OPERATOR 06/13/18 21:45 Basophils % MITER OPERATOR 06/13/18 21:45 Neutrophils (Manual) 58 % (40-80) 06/19/18 08:15 Lymphocytes 11 % (20-50) L 06/19/18 08:15 Monocytes 5 % (2-10) 06/19/18 08:15 Eosinophils 26 % (0-5) H 06/19/18 08:15 Platelet Estimate ADEQUATE (NORMAL) 06/19/18 08:15 Sodium 142 mEq/L (136-145) 06/13/18 21:45 Potassium 3.5 mEq/L (3.5-5.1) 06/13/18 21:45 Chloride 105 mEq/L (98-107) 06/13/18 21:45 Carbon Dioxide 27.2 mEq/L (21.0-31.0) 06/13/18 21:45 Anion Gap 13.3 (7.0-16.0) 06/13/18 21:45 BUN 33 mg/dL (7-25) H 06/13/18 21:45 Creatinine 0.6 mg/dL (0.6-1.2) 06/13/18 21:45 Est GFR ( Amer) TNP 06/13/18 21:45 Est GFR (Non-Af Amer) TNP 06/13/18 21:45 BUN/Creatinine Ratio 55.0 06/13/18 21:45 Glucose 129 mg/dL (70-105) H 06/13/18 21:45 Calcium 8.7 mg/dL (8.6-10.3) 06/13/18 21:45 Total Bilirubin 0.2 mg/dL (0.3-1.0) L 06/13/18 21:45 AST 11 U/L (13-39) L 06/13/18 21:45 ALT 8 U/L (7-52) 06/13/18 21:45 Alkaline Phosphatase 94 U/L (34-104) 06/13/18 21:45 Total Protein 6.3 gm/dL (6.0-8.3) 06/13/18 21:45 Albumin 3.4 gm/dL (3.7-5.3) L 06/13/18 21:45 Globulin 2.9 gm/dL 06/13/18 21:45 Albumin/Globulin Ratio 1.2 (1.0-1.8) 06/13/18 21:45 Triglycerides 181 mg/dL (<150) H 06/14/18 20:50 Cholesterol 133 mg/dL (<200) 06/14/18 20:50 LDL Cholesterol Direct 82 mg/dL (75-193) 06/14/18 20:50 HDL Cholesterol 34 mg/dL (23-92) 06/14/18 20:50 TSH 1.78 uIU/ml (0.34-5.60) 06/19/18 08:15 Urine Source CLEAN C 06/14/18 07:20 Urine Color YELLOW 06/14/18 07:20 Urine Clarity CLEAR (CLEAR) 06/14/18 07:20 Urine pH 6.0 (4.6 - 8.0) 06/14/18 07:20 Ur Specific [place] 1.020 (1.005-1.030) 06/14/18 07:20 Urine Protein NEGATIVE mg/dL (NEGATIVE) 06/14/18 07:20 Urine Glucose (UA) NEGATIVE mg/dL (NEGATIVE) 06/14/18 07:20 Urine Ketones NEGATIVE mg/dL (NEGATIVE) 06/14/18 07:20 Urine Blood NEGATIVE (NEGATIVE) 06/14/18 07:20 Urine Nitrate NEGATIVE (NEGATIVE) 06/14/18 07:20 Urine Bilirubin NEGATIVE (NEGATIVE) 06/14/18 07:20 Urine Urobilinogen 0.2 E.U./dL (0.2 - 1.0) 06/14/18 07:20 Ur Leukocyte Esterase TRACE (NEGATIVE) H 06/14/18 07:20 Urine RBC NONE SEEN /hpf (0-5) 06/14/18 07:20 Urine WBC 2-5 /hpf (0-5) 06/14/18 07:20 Ur Epithelial Cells FEW /lpf (FEW) 06/14/18 07:20 Urine Bacteria MODERATE /hpf (NONE SEEN) H 06/14/18 07:20 Urine Opiates Screen NEGATIVE (NEGATIVE) 06/14/18 08:42 Urine Methadone Screen NEGATIVE (NEGATIVE) 06/14/18 08:42 Ur Barbiturates Screen NEGATIVE (NEGATIVE) 06/14/18 08:42 Ur Tricyclics Screen POSITIVE (NEGATIVE) H 06/14/18 08:42 Ur Phencyclidine Scrn NEGATIVE (NEGATIVE) 06/14/18 08:42 Amphetamines Screen NEGATIVE (NEGATIVE) 06/14/18 08:42 U Methamphetamines Scrn NEGATIVE (NEGATIVE) 06/14/18 08:42 U Benzodiazepines Scrn NEGATIVE (NEGATIVE) 06/14/18 08:42 U Cocaine Metab Screen NEGATIVE (NEGATIVE) 06/14/18 08:42 U Cannabinoids Screen NEGATIVE (NEGATIVE) 06/14/18 08:42 RPR NONREACTIVE (NONREACTIVE) 06/13/18 21:45 - Physical Exam Vitals and I&O: Vital Signs Temp 97 F 06/18/18 20:09 Pulse 69 06/18/18 20:09 Resp 18 06/18/18 20:09 BP 108/65 06/18/18 20:09 Pulse Ox 95 06/18/18 20:09 Intake & Output 1106/19/18 06/19/18 18:59 06:59 18:59 Intake Total 180 Balance 180 Intake: Oral 180 Other: # Voids 2 # Bowel Movements 0 Active Medications: Current Medications Acetaminophen (Tylenol) 650 mg PO Q6HR PRN PRN Reason: Pain or Fever >101 Stop: 08/13/18 12:42 Acetaminophen/Hydrocodone Bitart ([place] 5mg/325mg) 1 tab PO Q6H PRN PRN Reason: Pain (Moderate) Stop: 08/13/18 12:42 Al Hydrox/Mg Hydrox/Simethicone (Maalox) 30 ml PO Q4HR PRN PRN Reason: GI DISTRESS Stop: 08/13/18 12:35 Amlodipine Besylate (Norvasc) 5 mg PO DAILY [facility] Stop: 08/14/18 08:59 Last Admin: 06/18/18 08:49 Dose: 5 mg Calamine/Phenol (Calmoseptine) 1 appl TP Q4H PRN PRN Reason: Dry Skin Stop: 08/17/18 11:18 Clonazepam (Klonopin) 0.5 mg PO BID [facility]; Protocol Stop: 08/14/18 08:59 Last Admin: 06/18/18 17:58 Dose: 0.5 mg Diphenhydramine HCl (Benadryl) 25 mg PO TID [facility] Stop: 08/17/18 08:59 Last Admin: 06/18/18 20:28 Dose: 25 mg Divalproex Sodium (Depakote Dr) 125 mg PO Q12HR [facility]; Protocol Stop: 08/14/18 08:59 Last Admin: 06/18/18 20:28 Dose: 125 mg Haloperidol Decanoate (Haldol Dec) 25 mg IM QMONTH [facility]; Protocol Stop: 08/14/18 04:44 Last Admin: 06/15/18 14:15 Dose: 25 mg Lactobacillus Rhamnosus (Culturelle 15b) 1 each PO DAILY [facility] Stop: 08/17/18 13:59 Last Admin: 06/18/18 14:46 Dose: 1 each Levothyroxine Sodium (Synthroid) 0.075 mg PO QDAC [facility] Stop: 08/14/18 07:29 Last Admin: 06/19/18 06:48 Dose: 0.075 mg Lorazepam (Ativan) 0.5 mg PO Q6HR PRN; Protocol PRN Reason: Agitation Stop: 08/13/18 14:26 Magnesium Hydroxide (Milk Of Magnesia) 30 ml PO HS PRN PRN Reason: Constipation Stop: 08/13/18 12:42 Memantine (Namenda) 5 mg PO DAILY [facility] Stop: 08/14/18 08:59 Last Admin: 06/18/18 08:48 Dose: 5 mg Miscellaneous (Probiotic Screen) 1 ea MC PRN PRN PRN Reason: PROTOCOL Stop: 08/17/18 12:50 Mupirocin (Bactroban Oint) 1 appl NS BID [facility] Stop: 06/20/18 09:01 Last Admin: 06/18/18 17:59 Dose: 1 appl Potassium Chloride (Klor-Con) 40 meq PO DAILY [facility] Stop: 08/14/18 08:59 Last Admin: 06/18/18 08:48 Dose: 40 meq Quetiapine Fumarate (Seroquel) 50 mg PO HS [facility]; Protocol Stop: 08/13/18 20:59 Last Admin: 06/18/18 20:28 Dose: 50 mg Quetiapine Fumarate (Seroquel) 150 mg PO DAILY [facility]; Protocol Stop: 08/17/18 08:59 Last Admin: 06/18/18 08:47 Dose: 150 mg Senna (Senna) 8.6 mg PO HS [facility] Stop: 08/13/18 20:59 Last Admin: 06/18/18 20:28 Dose: 8.6 mg Terbinafine HCl (Lamisil) 250 mg PO DAILY [facility] Stop: 08/17/18 08:59 Last Admin: 06/18/18 08:54 Dose: Not Given Trimethoprim/Sulfamethoxazole (Bactrim Ds) 1 tab PO BID [facility] Stop: 08/16/18 08:59 Last Admin: 06/18/18 17:58 Dose: 1 tab Zolpidem Tartrate (Ambien) 5 mg PO HS PRN PRN Reason: Insomnia Stop: 08/13/18 12:35 Last Admin: 06/17/18 21:39 Dose: 5 mg General: Alert, No acute distress HEENT: Atraumatic Neck: Supple Cardiovascular: Regular rate Lungs: Clear to auscultation Abdomen: Bowel sounds, Soft Extremities: Edema Neurological: Other (Unstable gait) Skin: Rash Psych/Mental Status: Other (Confused, not oriented.) Assessment/Plan - Problem List Patient Problems: All Active Problems Agitation (Acute) R45.1 - Assessment Assessment: Current Active Problems Problem Status Onset Agitation Acute Patient is awake, alert, calm, in no acute distress. Dx; Increased in agitation , Psychosis, Dermatophytosis Rash, HTN, CHF, Hypothyroidism - Plan Plan: patient is follow by Psychiatry, continue with SNF meds. Will continue to monitor.
[2018-06-19 14:23] LABS: ANION GAP 20.3 (7.0-16.0); BUN - UREA NITROGEN 19 mg/dL (7-25); CALCIUM SERUM 9.1 mg/dL (8.6-10.3); CHLORIDE 107 mEq/L (98-107); CREATININE - SERUM 0.8 mg/dL (0.6-1.2); GLUCOSE 76 mg/dL (70-105); POTASSIUM SERUM 4.3 mEq/L (3.5-5.1); SODIUM SERUM 143 mEq/L (136-145)
[2018-06-19 14:24] LABS: ALB/GLOB RATIO 0.6 (1.0-1.8); ALBUMIN 2.7 gm/dL (3.7-5.3); ALKALINE PHOSPHATASE 90 U/L (34-104); BILIRUBIN,TOTAL 0.5 mg/dL (0.3-1.0); SGOT 20 U/L (13-39); SGPT/ALT 22 U/L (7-52); TOTAL PROTEIN,SERUM 7.3 gm/dL (6.0-8.3)
--- NOTE | 2018-06-19 23:23 | Progress Notes ---
DATE: 06/18/2018 SUBJECTIVE: Chart reviewed and the patient interviewed. Also discussed the patient's condition with the staff and reviewed records and labs. The patient seems to be calmer. Less agitated. Less irritable. Cooperative. Thought processes are circumstantial, but no flight of ideas. Easier to redirect her. ASSESSMENT: The patient is less psychotic and less agitated. TREATMENT PLAN: Planning to discharge the patient today if will be accepted by [facility] with plans for followup there. JOB# [id number]
--- NOTE | 2018-06-19 23:47 | Progress Notes ---
DATE: 06/17/2018 SUBJECTIVE: Chart reviewed and the patient interviewed. Also discussed the patient's condition with the staff and reviewed records and labs. The patient is still easily agitated and she is still in angry and in irritable moods. The patient also is still suspicious and is still paranoid. She also is interacting minimally with others. She also is still agitated and needs lots of redirections. Otherwise, the patient is compliant with taking her medications with no side effects of medications. ASSESSMENT: The patient is still agitated and psychotic. TREATMENT PLAN: We will monitor the patient's behavior closely. Also, we will continue adjusting psychotropic medications and work on behavioral modifications and discharge plans. JOB# [id number]
--- NOTE | 2018-06-20 00:29 | Discharge Summary ---
DATE OF DISCHARGE: 06/19/2018 FINAL/PRIMARY DIAGNOSIS: Unspecified psychosis. SECONDARY DIAGNOSES: Dementia, moderate to severe, with psychosis and behavioral disturbances. REASON FOR HOSPITALIZATION: The patient was admitted to the hospital from [facility] because of increased agitation with irritability and yelling and screaming constantly and difficulty following directions. HOSPITAL COURSE: The patient continued to be agitated and in irritable mood. The patient also was restless. She also had difficulty following any of staff directions. The patient finally was calmer after she was given Klonopin 0.5 mg twice a day, Depakote 125 mg twice a day as well as Seroquel in a dose of 150 mg every day and 50 mg at bedtime. The patient also is giving Haldol, Decanoate injection once a month, 25 mg for better compliance. PHYSICAL EXAMINATION: The patient showed no major medical problems. Blood workup was also basically within normal. AFTER-DISCHARGE PLANS: The patient discharged from the hospital with plans for outpatient treatment and followup to continue as an outpatient. EXPECTED OUTCOME AFTER DISCHARGE: Fair if the patient continued to take her medications and follow up with discharge plans. JOB# [id number]
--- NOTE | 2018-06-20 03:45 | Discharge Summary ---
DATE OF DISCHARGE: 06/19/2018 JUSTIFICATION FOR HOSPITALIZATION: Combative behaviors, aggressive behaviors, kicking staff, slapping staff, delusional. HISTORY OF PRESENT ILLNESS: A 73-year-old female, confused, disoriented, combative, agitated, aggressive, kicking staff, hitting staff, slapping staff, delusional, believing staff are criminals, nonsensical, requiring emergency orders of medications in the hospital. PAST PSYCHIATRIC HISTORY: The patient is suffering from dementia with dementia behaviors. PAST MEDICAL HISTORY: Please see full H and P. MEDICATIONS: Noted. SOCIAL HISTORY: Daughters involved. The patient is residing in a assisted facility. PROVISIONAL DIAGNOSES: Dementia, dementia with behavioral disturbances, rule out bipolar, psychosis, unspecified; anxiety, unspecified. Medical: Please see full H and P. HOSPITAL COURSE: After initial assessment, the patient was started on medications, low dose Seroquel, which was titrated. Also, Depakote for impulse control. Initially, she was combative, agitated, trying to hit staff. However, as the hospitalization course progressed, she did calm down, more cooperative. She remained confused, disoriented, bizarre, in fact toward the latter end of her hospitalization she was somewhat over sedated, so I did lower her medications, holding her medications as well. She began to become more arousable. Toward the latter end of the hospitalization, specifically 06/19/2018, she was no longer combative, no longer aggressive, no longer violent. She remained confused, but was no longer meeting inpatient criteria for hospitalization. She was somewhat over sedated, but medications were lowered. She was stepped down to a lower level of care. CONDITION UPON DISCHARGE: Improved. The patient with clear skin, pathology apparently a fungal infection, which was being treated, somewhat unkempt. Mood "okay." Mildly lethargic on exam. No SI, no HI, no combative behaviors, no longer delusional, better impulse control. PROVISIONAL DIAGNOSES: Dementia, dementia with behaviors, rule out bipolar, psychosis, unspecified. Medical: Please see full H and P. PROGNOSIS: The patient follows up with outpatient mental health services and remains compliant with treatment. Prognosis improved, otherwise guarded. JOB# [id number]
== END 2018-06-19 13:52 | DRG 885 ==
LOC: ER 21:13 → GERO2 06-14 10:00 → GERO 06-14 17:12
PROVIDERS: ADMIT Psychiatry & Neurology Psychiatry; ATTEND Psychiatry & Neurology Psychiatry
DX: F29 Unspecified psychosis not due to a substance or known physiological condition (principal); I11.0 Hypertensive heart disease with heart failure; F03.91 Unspecified dementia, unspecified severity, with behavioral disturbance; I50.9 Heart failure, unspecified; E03.9 Hypothyroidism, unspecified; Z88.1 Allergy status to other antibiotic agents; Z88.0 Allergy status to penicillin; Z66 Do not resuscitate; I25.10 Atherosclerotic heart disease of native coronary artery without angina pectoris; Z79.899 Other long term (current) drug therapy; B35.9 Dermatophytosis, unspecified
CPT/HCPCS: 36415-UA; 80053-TC; 80061-TC; 80307; 81001-TC; 83036-90; 84443-TC; 85007-TC; 85025-TC; 86592-TC; 87086-90; 93005; J1200; J1630; J1631; J2060; Z7610